=== PATIENT | female | born 1985 | race Caucasian/White ===

== ENCOUNTER 2018-09-25 03:46 | Emergency (ER) | payer OTHER ==
[~2018-09-25] VITALS: Ht 157.5 cm; Wt 59.0 kg
[~2018-09-25 03:46] MED LIST: BENADRYL50 MG; CLARITIN10 M1
[2018-09-25] MEDS ORDERED: AMOX-CLAV 875-1 EACH PO (04:48)
[2018-09-25] MEDS ORDERED: INTESTINEX680 M1 PO (04:48)
[2018-09-25] MEDS ORDERED: KETO10TA2 PO (04:48)
== END 2018-09-25 05:10 | disposition home or self-care (01) ==
LOC: ER 03:46
DX: K11.23 Chronic sialoadenitis (principal)

== ENCOUNTER 2018-11-29 19:10 | Emergency (ER) | payer OTHER ==
[~2018-11-29] VITALS: Ht 157.5 cm; Wt 59.0 kg
[~2018-11-29 19:10] MED LIST changes: +AMOX-CLAV 875-1 EACH PO; +INTESTINEX680 M1 PO; +KETO10TA2 PO
[2018-11-29] MEDS ORDERED: CLARITIN10 M1 (19:21)
[2018-11-29] MEDS ORDERED: ZYRTEC10 MG PO (21:04)
== END 2018-11-29 21:07 | disposition home or self-care (01) ==
LOC: ER
DX: L23.89 Allergic contact dermatitis due to other agents (principal)

== ENCOUNTER 2019-04-08 20:34 | Emergency (ER) | payer OTHER ==
[~2019-04-08] VITALS: Ht 157.5 cm; Wt 61.2 kg
[~2019-04-08 20:34] MED LIST changes: +ZYRTEC10 MG PO
[2019-04-08] MEDS ORDERED: SKELAXIN800 MG PO (23:24)
== END 2019-04-08 23:47 | disposition home or self-care (01) ==
LOC: ER 20:34
DX: R51 Headache (principal); E16.1 Other hypoglycemia

== ENCOUNTER 2020-04-24 07:54 | Emergency (ER) | payer OTHER ==
[~2020-04-24] VITALS: Ht 157.5 cm; Wt 59.0 kg
[~2020-04-24 07:54] MED LIST changes: +SKELAXIN800 MG PO
== END 2020-04-24 10:11 | disposition home or self-care (01) ==
LOC: ER 07:54
DX: F06.4 Anxiety disorder due to known physiological condition (principal)

== ENCOUNTER 2020-05-11 18:03 | Emergency (ER) | payer OTHER ==
[~2020-05-11] VITALS: Ht 157.5 cm; Wt 59.0 kg
== END 2020-05-11 21:08 | disposition home or self-care (01) ==
LOC: ER 18:03
DX: E16.1 Other hypoglycemia (principal); F06.4 Anxiety disorder due to known physiological condition